=== PATIENT | male | born 1985 | race Caucasian/White ===

== ENCOUNTER 2017-02-19 05:17 | Emergency (ER) | payer OTHER ==
[~2017-02-19] VITALS: Ht 167.6 cm; Wt 134.3 kg
[2017-02-19 05:17] VITALS: BP_SYST 148
--- NOTE | 2017-02-19 05:17 | NUR ---
Patient to ER bed 6 to gown for evaluation. Side rails up. Report given to MARIPOSA MARIANO.
--- NOTE | 2017-02-19 05:20 | NUR ---
Patient arrived to ED a/o x 4 with c/o right sided ear pain x 2 weeks. Increased pain x 1 day prompted ED visit. Reports 8/10 pain. No drainage or discharge noted. Patient afebrile. Denies N/V or syncope. Ambulates with steady gait. Denies vertigo.
--- NOTE | 2017-02-19 05:35 | NUR ---
ED [facility] at bedside for medical evaluation.
--- NOTE | 2017-02-19 06:08 | NUR ---
Patient given written and verbal discharge instructions and verbalizes understanding. ER MD discussed with patient the results and treatment provided. Patient in stable condition. ID arm band removed. Rx of Biaxin Filmtab and Naprosyn given. Patient educated on pain management and to follow up with PMD. Pain Scale 3/10. Opportunity for questions provided and answered.
== END 2017-02-19 06:08 | disposition home or self-care (01) ==
LOC: SED 05:17
DX: H66.91 Otitis media, unspecified, right ear (principal)
CPT/HCPCS: 99283

== ENCOUNTER 2020-02-08 23:05 | Emergency (ER) | payer OTHER ==
[~2020-02-08] VITALS: Ht 167.6 cm; Wt 129.3 kg
[2020-02-08 23:10] VITALS: BP_SYST 137
[2020-02-09 00:09] VITALS: BP_SYST 135
== END 2020-02-09 00:09 | disposition home or self-care (01) ==
LOC: SED 23:05
DX: U07.1 COVID-19 (principal); J12.89 Other viral pneumonia; Z88.0 Allergy status to penicillin
CPT/HCPCS: 36600; 71045; 82803-TC; 99284

== ENCOUNTER 2023-07-22 04:52 | Emergency (ER) | payer OTHER ==
[~2023-07-22] VITALS: Ht 167.6 cm; Wt 145.1 kg
[2023-07-22 04:55] VITALS: BP_SYST 144; PULSE 90; RESP 18; TEMP 98; O2SAT 94
[2023-07-22] MEDS ORDERED: CEFU250T85 PO (05:31)
[2023-07-22 05:47] VITALS: BP_SYST 144; PULSE 90; RESP 18; TEMP 98; O2SAT 94
== END 2023-07-22 05:47 | disposition home or self-care (01) ==
LOC: SED 04:52
DX: J18.9 Pneumonia, unspecified organism (principal); Z88.0 Allergy status to penicillin
CPT/HCPCS: 71045; 99283